=== PATIENT | male | born 1970 | race Caucasian/White ===

== ENCOUNTER 2020-12-01 08:45 | Emergency (ER) | payer BC ==
[2020-12-01] MEDS ORDERED: Lactated Ringers 1,000 ML IV ONE ×2 (09:05→12:15)
[2020-12-01] MEDS ORDERED: Sodium Chloride 0.9% 10 ML Syringe FLUSH PRN (09:13)
[2020-12-01] MEDS ORDERED: Sodium Chloride 0.9% 1,000 ML IV SCH (09:15)
[2020-12-01] MEDS ORDERED: LORazepam 2 MG/ML SDV IVPUSH ONE (09:41)
[2020-12-01] MEDS ORDERED: Lactated Ringers 2,000 ML IV ONE (10:10)
--- NOTE | 2020-12-01 10:13 | EDM.PDOC ---
ED HPI GENERAL MEDICAL PROBLEM - General Chief Complaint: Respiratory Problem Stated Complaint: [facility] Time Seen by Provider: 12/01/20 09:07 Source of Information: Reports: Patient, EMS, RN Notes Reviewed - History of Present Illness INITIAL COMMENTS - FREE TEXT/NARRATIVE: 50 yr old male has come in by ambulance with sx of diarrhea, generalized weakness, dsypnea. No cough, known fever or chills. Hx of covid back in June about 5 months ago. He states he has had multiple episodes of diarrhea since that time. Has been ill for about 5 days with watery diarrhea. Occasional stomach cramps. Has not been vomiting. No cough or chest pain. 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 - Related Data Allergies Allergy/AdvReac Type Severity Reaction Status Date / Time No Known Allergies Allergy Verified 12/01/20 08:59 Home Meds: Home Meds . [No Known Home Meds] 12/01/20 [History] Past Medical History - Infectious Disease History Infectious Disease History: Reports: Novel Coronavirus - Past Surgical History GI Surgical History: Reports: Bariatric Procedure Musculoskeletal Surgical History: Reports: Hip Replacement Social & Family History - Tobacco Use Tobacco Use Status *Q: Current Every Day Tobacco User Years of Tobacco use: 20 Packs/Tins Daily: 0.7 - Recreational Drug Use Recreational Drug Use: No ED ROS GENERAL - Review of Systems Review Of Systems: See Below Constitutional: Reports: Fever (possible low grade), Chills HEENT: Reports: Other (mouth feels very dry) Respiratory: Reports: Shortness of Breath Cardiovascular: Reports: Lightheadedness. Denies: Chest Pain GI/Abdominal: Reports: Diarrhea (severe watery, started about 5 days ago). Denies: Abdominal Pain, Nausea, Vomiting Musculoskeletal: Reports: Other (generalized achiness) Skin: Denies: Rash Neurological: Reports: Dizziness, Weakness (generalized) ED EXAM, GENERAL - Physical Exam Exam: See Below General Appearance: Alert, Anxious, Moderate Distress Eye Exam: Bilateral Eye: PERRL Ears: Normal External Exam Throat/Mouth: Other (oral mucosa very dry) Course - Vital Signs Last Recorded V/S: Last Vital Signs Temp 97.2 F 12/01/20 12:15 Pulse 106 H 12/01/20 12:15 Resp 24 H 12/01/20 12:15 BP 96/55 L 12/01/20 12:15 Pulse Ox 99 12/01/20 12:15 - Orders/Labs/Meds Labs: Laboratory Tests 12/01/20 12/01/20 12/01/20 Range/Units 09:00 09:00 09:00 WBC 31.42 H (4.23-9.07) K/mm3 RBC 4.83 (4.63-6.08) M/mm3 Hgb 13.1 L (13.7-17.5) gm/dl Hct 40.8 (40.1-51.0) % MCV 84.5 (79.0-92.2) fl MCH 27.1 (25.7-32.2) pg MCHC 32.1 L (32.2-35.5) g/dl RDW Std Deviation 53.8 H (35.1-43.9) fL Plt Count 55 L (163-337) K/mm3 MPV TNP Neut % (Auto) Cancelled Lymph % (Auto) Cancelled [place] % (Auto) Cancelled Eos % (Auto) Cancelled Baso % (Auto) Cancelled Neut # (Auto) Cancelled Lymph # (Auto) Cancelled [place] # (Auto) Cancelled Eos # (Auto) Cancelled Baso # (Auto) Cancelled Neutrophils % (Manual) 63 H (40-60) % Band Neutrophils % 22 H (0-10) % Lymphocytes % (Manual) 4 L (20-40) % Atypical Lymphs % 0 % Monocytes % (Manual) 9 (2-10) % Eosinophils % (Manual) 0 L (0.8-7.0) % Basophils % (Manual) 0 L (0.2-1.2) Metamyelocytes % 2 Manual Slide Review Cancelled Toxic Granulation 3+ marked Dohle Bodies 1+ slight Platelet Estimate Marked dec Plt Morphology Comment Normal RBC Morph Comment Normal Puncture Site ABG pH (7.35-7.45) ABG pCO2 (35.0-45.0) mmHg ABG pO2 (80.0-100.0) mmHg ABG HCO3 (22.0-26.0) meq/L ABG O2 Saturation (96.0-97.0) % ABG Base Excess (-2-2.0) Carlton Test A-a Gradient mmHg O2 Delivery Device Oxygen Flow Rate FiO2 (21.00-100.00) % Sodium 137 (136-145) mEq/L Potassium 3.8 (3.5-5.1) mEq/L Chloride 99 (98-107) mEq/L Carbon Dioxide 13 L (21-32) mEq/L Anion Gap 28.8 H (5-15) BUN 74 H (7-18) mg/dL Creatinine 5.4 H (0.7-1.3) mg/dL Est Cr Clr Drug Dosing 17.04 mL/min Estimated GFR (MDRD) 11 (>60) mL/min BUN/Creatinine Ratio 13.7 L (14-18) Glucose 118 H (74-106) mg/dL POC Glucose (70-105) mg/dL Lactic Acid (0.4-2.0) mmol/L Calcium 8.3 L (8.5-10.1) mg/dL Total Bilirubin 2.9 H (0.2-1.0) mg/dL AST 23 (15-37) U/L ALT 17 (16-63) U/L Alkaline Phosphatase 327 H (46-116) U/L Troponin I < 0.017 (0.00-0.056) ng/mL C-Reactive Protein 27.0 H* (<1.0) mg/dL Total Protein 6.5 (6.4-8.2) g/dl Albumin 2.1 L (3.4-5.0) g/dl Globulin 4.4 gm/dL Albumin/Globulin Ratio 0.5 L (1-2) SARS-CoV-2 RNA (BARBARA) (NEGATIVE) 12/01/20 12/01/20 12/01/20 Range/Units 09:15 09:24 10:15 WBC (4.23-9.07) K/mm3 RBC (4.63-6.08) M/mm3 Hgb (13.7-17.5) gm/dl Hct (40.1-51.0) % MCV (79.0-92.2) fl MCH (25.7-32.2) pg MCHC (32.2-35.5) g/dl RDW Std Deviation (35.1-43.9) fL Plt Count (163-337) K/mm3 MPV Neut % (Auto) Lymph % (Auto) [place] % (Auto) Eos % (Auto) Baso % (Auto) Neut # (Auto) Lymph # (Auto) [place] # (Auto) Eos # (Auto) Baso # (Auto) Neutrophils % (Manual) (40-60) % Band Neutrophils % (0-10) % Lymphocytes % (Manual) (20-40) % Atypical Lymphs % % Monocytes % (Manual) (2-10) % Eosinophils % (Manual) (0.8-7.0) % Basophils % (Manual) (0.2-1.2) Metamyelocytes % Manual Slide Review Toxic Granulation Dohle Bodies Platelet Estimate Plt Morphology Comment RBC Morph Comment Puncture Site Rt radial ABG pH 7.28 L (7.35-7.45) ABG pCO2 21.1 L (35.0-45.0) mmHg ABG pO2 127.0 H (80.0-100.0) mmHg ABG HCO3 9.7 L (22.0-26.0) meq/L ABG O2 Saturation 98.4 H (96.0-97.0) % ABG Base Excess -15.3 L (-2-2.0) Carlton Test Positive A-a Gradient 103 mmHg O2 Delivery Device Nasal cannula Oxygen Flow Rate 4.0 FiO2 36.00 (21.00-100.00) % Sodium (136-145) mEq/L Potassium (3.5-5.1) mEq/L Chloride (98-107) mEq/L Carbon Dioxide (21-32) mEq/L Anion Gap (5-15) BUN (7-18) mg/dL Creatinine (0.7-1.3) mg/dL Est Cr Clr Drug Dosing mL/min Estimated GFR (MDRD) (>60) mL/min BUN/Creatinine Ratio (14-18) Glucose (74-106) mg/dL POC Glucose 75 (70-105) mg/dL Lactic Acid 8.4 H* (0.4-2.0) mmol/L Calcium (8.5-10.1) mg/dL Total Bilirubin (0.2-1.0) mg/dL AST (15-37) U/L ALT (16-63) U/L Alkaline Phosphatase (46-116) U/L Troponin I (0.00-0.056) ng/mL C-Reactive Protein (<1.0) mg/dL Total Protein (6.4-8.2) g/dl Albumin (3.4-5.0) g/dl Globulin gm/dL Albumin/Globulin Ratio (1-2) SARS-CoV-2 RNA (BARBARA) (NEGATIVE) 12/01/20 12/01/20 Range/Units 10:50 12:20 WBC (4.23-9.07) K/mm3 RBC (4.63-6.08) M/mm3 Hgb (13.7-17.5) gm/dl Hct (40.1-51.0) % MCV (79.0-92.2) fl MCH (25.7-32.2) pg MCHC (32.2-35.5) g/dl RDW Std Deviation (35.1-43.9) fL Plt Count (163-337) K/mm3 MPV Neut % (Auto) Lymph % (Auto) [place] % (Auto) Eos % (Auto) Baso % (Auto) Neut # (Auto) Lymph # (Auto) [place] # (Auto) Eos # (Auto) Baso # (Auto) Neutrophils % (Manual) (40-60) % Band Neutrophils % (0-10) % Lymphocytes % (Manual) (20-40) % Atypical Lymphs % % Monocytes % (Manual) (2-10) % Eosinophils % (Manual) (0.8-7.0) % Basophils % (Manual) (0.2-1.2) Metamyelocytes % Manual Slide Review Toxic Granulation Dohle Bodies Platelet Estimate Plt Morphology Comment RBC Morph Comment Puncture Site ABG pH (7.35-7.45) ABG pCO2 (35.0-45.0) mmHg ABG pO2 (80.0-100.0) mmHg ABG HCO3 (22.0-26.0) meq/L ABG O2 Saturation (96.0-97.0) % ABG Base Excess (-2-2.0) Carlton Test A-a Gradient mmHg O2 Delivery Device Oxygen Flow Rate FiO2 (21.00-100.00) % Sodium (136-145) mEq/L Potassium (3.5-5.1) mEq/L Chloride (98-107) mEq/L Carbon Dioxide (21-32) mEq/L Anion Gap (5-15) BUN (7-18) mg/dL Creatinine (0.7-1.3) mg/dL Est Cr Clr Drug Dosing mL/min Estimated GFR (MDRD) (>60) mL/min BUN/Creatinine Ratio (14-18) Glucose (74-106) mg/dL POC Glucose (70-105) mg/dL Lactic Acid 6.3 H* (0.4-2.0) mmol/L Calcium (8.5-10.1) mg/dL Total Bilirubin (0.2-1.0) mg/dL AST (15-37) U/L ALT (16-63) U/L Alkaline Phosphatase (46-116) U/L Troponin I (0.00-0.056) ng/mL C-Reactive Protein (<1.0) mg/dL Total Protein (6.4-8.2) g/dl Albumin (3.4-5.0) g/dl Globulin gm/dL Albumin/Globulin Ratio (1-2) SARS-CoV-2 RNA (BARBARA) Negative (NEGATIVE) Meds: Medications Discontinued Medications Generic Name Dose Route Start Last Admin Trade Name Freq PRN Reason Stop Dose Admin Hydromorphone HCl 0.5 mg 12/01/20 11:44 12/01/20 11:55 Dilaudid IVPUSH 12/01/20 11:45 0.5 mg ONETIME ONE Administration Sodium Chloride 1,000 mls @ 999 mls/hr 12/01/20 09:15 12/01/20 09:05 Normal Saline IV 999 mls/hr ONETIME LISA Administration Lactated Ringer's 1,000 mls @ 999 mls/hr 12/01/20 09:05 12/01/20 09:15 Ringers, Lactated IV 12/01/20 10:05 999 mls/hr .BOLUS ONE Administration Ceftriaxone Sodium 2 gm/ 100 mls @ 200 mls/hr 12/01/20 10:22 12/01/20 10:55 Sodium Chloride IV 12/01/20 10:51 200 mls/hr ONETIME ONE Administration Lactated Ringer's 2,000 mls @ 999 mls/hr 12/01/20 10:10 12/01/20 10:35 Ringers, Lactated IV 12/01/20 12:10 999 mls/hr .BOLUS ONE Administration Dextrose/Water Confirm 12/01/20 12:03 Dextrose 5% In Water Administered 12/01/20 12:04 Dose 250 mls @ as directed .ROUTE .STK-MED ONE Norepinephrine Bitartrate 4 mg 250 mls @ 7.5 mls/hr 12/01/20 12:30 / Dextrose/Water IV TITRATE LISA Protocol 2 MCG/MIN Lactated Ringer's 1,000 mls @ 250 mls/hr 12/01/20 12:15 12/01/20 12:20 Ringers, Lactated IV 12/01/20 16:14 250 mls/hr .BOLUS ONE Administration Lorazepam 0.5 mg 12/01/20 09:41 12/01/20 09:48 Ativan IVPUSH 12/01/20 09:42 0.5 mg ONETIME ONE Administration Norepinephrine Bitartrate Confirm 12/01/20 12:02 Levophed Administered 12/01/20 12:03 Dose 4 mg .ROUTE .STK-MED ONE Sodium Chloride 10 ml 12/01/20 09:13 12/01/20 09:00 Saline Flush FLUSH 10 ml ASDIRECTED PRN Administration Keep Vein Open - Re-Assessments/Exams Free Text/Narrative Re-Assessment/Exam: 12/01/20 10:10, WBC 31,400, 63 seg, 22 band. hgb 13.1 plts 55,000. CO2 13. An gap 29. Glucose 118. L Acid 8.4. Bili 2.9. CRP 27. CXR nl, He has not voided yet. Plan to bolus total of 4 L NS/LR. Initial BP was only 65 systolic, pulse 150 but BP up to 79/50 at time of my exam a few minutes later, heart rate down to 112. BP has been running primarily in the mid 70's to aroun 80 systolic. Heart rate running 100 to 108. Has remained in alert, no chest pain. Will check ABG's. 12/01/20 11:30. We are on ICU diversion, have arranged to transfer to [facility] [place], Critical Care Unit, Dr Turcios, Mechanical Engineering Specialist, accepting Provider. He will go by ground ambulance. 12:00. BP back down in the 60's, approval given for levophed drip to titrate lowest level possible. 12/01/20 12:15. 96/55. 106. Feeling much better. alert, Good skin color, Sitting at edge of bed without difficulty just prior to transfer. Cap refill less than 2 seconds. 13:00 repeat L Acid 6.3. Departure - Departure Time of Disposition: 11:40 Disposition: DC/Tfer to [facility] 02 Condition: Serious Clinical Impression: Dehydration, Prerenal acute renal failure Sepsis Qualifiers: Sepsis type: sepsis due to unspecified organism Sepsis acute organ dysfunction status: unspecified Qualified Code(s): A41.9 - Sepsis, unspecified organism Diarrhea Qualifiers: Diarrhea type: unspecified type Qualified Code(s): R19.7 - Diarrhea, unspecified - Discharge Information Referrals: PCP,None [Primary Care Provider] - Forms: ED Department Discharge Sepsis Event Note (ED) - Evaluation Sepsis Screening Result: Severe Sepsis Risk
[2020-12-01] MEDS ORDERED: cefTRIAXone 2 GM in Sodium Chloride 0.9% 100 ML IV ONE (10:22)
--- NOTE | 2020-12-01 11:31 | CR ---
Chest: Portable upright view of the chest was obtained. Comparison: No previous chest imaging is available. Heart size and mediastinum are within normal limits for portable technique. Lungs are clear with no acute parenchymal change. No acute osseous abnormality is appreciated. Impression: 1. Nothing acute is seen on portable chest x-ray. Diagnostic code #1
[2020-12-01] MEDS ORDERED: HYDROmorphone 0.5 MG/0.5 ML Syringe IVPUSH ONE (11:44)
[2020-12-01] MEDS ORDERED: Norepinephrine 4 MG/4 ML SDV ONE (12:02)
[2020-12-01] MEDS ORDERED: Dextrose 5% in Water 250 ML ONE (12:03)
[2020-12-01] MEDS ORDERED: Norepinephrine 4 MG in Dextrose 5% in Water 246 ML IV SCH ×2 (12:30)
== END 2020-12-01 12:25 ==
LOC: JD.ED 08:45
DX: A41.9 Sepsis, unspecified organism (principal); R65.20 Severe sepsis without septic shock; N17.9 Acute kidney failure, unspecified; E86.0 Dehydration; R19.7 Diarrhea, unspecified; Z72.0 Tobacco use; Z20.822 Contact with and (suspected) exposure to COVID-19
CPT/HCPCS: 36415; 36600; 71045; 80053; 82803; 82962; 83605; 84484; 85007; 85027; 86140; 87040; 87077; 87184; 87186; 87635; 93005; 96365; 96375; 99285; J0696; J1170; J2060; J7030; J7120; 99284; U0002